=== PATIENT | female | born 1970 | race Two or more races ===

== ENCOUNTER 2019-03-23 08:48 | Outpatient (CLI) | payer OTHER ==
[~2019-03-23 08:48] MED LIST: DURICEF 500 MG CAPSULE PO; TRAM1TAB98 PO
== END 2019-03-23 09:52 | disposition home or self-care (01) ==
LOC: LAB 08:48
DX: B96.29 Other Escherichia coli [E. coli] as the cause of diseases classified elsewhere (principal); E11.9 Type 2 diabetes mellitus without complications; E03.8 Other specified hypothyroidism; E78.2 Mixed hyperlipidemia; M81.0 Age-related osteoporosis without current pathological fracture; N39.0 Urinary tract infection, site not specified; I10 Essential (primary) hypertension

== ENCOUNTER 2019-03-23 13:42 | Outpatient (CLI) | payer OTHER | END 2019-03-23 13:59 | disposition home or self-care (01) | LOC: NUCLEAR 13:42 | DX: I10 Essential (primary) hypertension (principal) ==

== ENCOUNTER 2019-03-23 15:50 | Outpatient (CLI) | payer OTHER | END 2019-03-23 15:54 | disposition home or self-care (01) | LOC: RAD 15:50 | DX: R10.9 Unspecified abdominal pain (principal); M46.47 Discitis, unspecified, lumbosacral region; N63.11 Unspecified lump in the right breast, upper outer quadrant ==

== ENCOUNTER 2024-09-13 13:33 | Outpatient (CLI) | payer OTHER | END 2024-09-13 13:42 | disposition home or self-care (01) | LOC: MAMO-SONO 13:33 | PROVIDERS: ATTEND Surgery | DX: N60.11 Diffuse cystic mastopathy of right breast (principal); N60.12 Diffuse cystic mastopathy of left breast ==